=== PATIENT | female | born 1950 | race Caucasian/White ===

== ENCOUNTER → 2017-09-03 | Outpatient (CLI) | payer MEDICARE, BC | END | disposition home or self-care (01) | LOC: PCVCCLINIC 10:23 | DX: I25.10 Atherosclerotic heart disease of native coronary artery without angina pectoris (principal); I65.23 Occlusion and stenosis of bilateral carotid arteries; E78.2 Mixed hyperlipidemia; I10 Essential (primary) hypertension; E11.9 Type 2 diabetes mellitus without complications; Z87.891 Personal history of nicotine dependence; Z79.899 Other long term (current) drug therapy; Z79.82 Long term (current) use of aspirin | CPT/HCPCS: 93005; G0463 ==

== ENCOUNTER → 2018-03-11 | Outpatient (CLI) | payer MEDICARE, BC | END | disposition home or self-care (01) | LOC: PCVCCLINIC 11:11 | PROVIDERS: ATTEND Internal Medicine | DX: I25.10 Atherosclerotic heart disease of native coronary artery without angina pectoris (principal); I10 Essential (primary) hypertension; I65.23 Occlusion and stenosis of bilateral carotid arteries; E78.5 Hyperlipidemia, unspecified; E11.9 Type 2 diabetes mellitus without complications; Z79.4 Long term (current) use of insulin; Z87.891 Personal history of nicotine dependence; Z79.82 Long term (current) use of aspirin; Z79.899 Other long term (current) drug therapy | CPT/HCPCS: 80061; 93005; G0463 ==

== ENCOUNTER → 2018-09-09 | Outpatient (CLI) | payer BC, MEDICARE | END | disposition home or self-care (01) | LOC: PCVCCLINIC 11:51 | PROVIDERS: ATTEND Internal Medicine | DX: I25.10 Atherosclerotic heart disease of native coronary artery without angina pectoris (principal); I10 Essential (primary) hypertension; E78.5 Hyperlipidemia, unspecified; E11.9 Type 2 diabetes mellitus without complications; I65.23 Occlusion and stenosis of bilateral carotid arteries; E78.00 Pure hypercholesterolemia, unspecified; Z87.891 Personal history of nicotine dependence; Z79.82 Long term (current) use of aspirin | CPT/HCPCS: 36415; 80061; 93005; G0463 ==

== ENCOUNTER → 2018-10-03 | Outpatient (CLI) | payer BC, MEDICARE ==
[~2018-10-03] MED LIST: REGADENOSON 0.4 MG/5 ML DISP.SYRIN. IV ONE
--- NOTE | 2018-10-03 09:09 | PCVCIMAG ---
APPROVED REPORT Indications Stenosis Risk Factors Hypertension: Hyperlipidemia Diabetes, Doppler Spectral Velocity Analysis PSV / EDVPSV / EDV ECA (R) 48 / 6 cm/sECA (L) 73 / 16 cm/s dICA (R) 65 / 25 cm/sdICA (L) 92 / 36 cm/s Aster (R) 57 / 19 cm/smICA (L) 83 / 36 cm/s pICA (R) 43 / 16 cm/spICA (L) 51 / 18 cm/s Bulb (R) 51 / 16 cm/sBulb (L) 81 / 23 cm/s dCCA (R) 56 / 16 cm/sdCCA (L) 81 / 22 cm/s mCCA (R) 78 / 22 cm/smCCA (L) 99 / 31 cm/s Vert (R) 40 / 14 cm/sVert (L) 39 / 13 cm/s ICA/CCA 0.83ICA/CCA 0.93 Basic Measurements Blood Pressure: Pulses: Right Left RightLeft Brachial(Sitting) 124/12cbPk092/74mmHgTemporal Real Time B-Mode Imaging Vert. (R)AntegradeVert. (L)Antegrade Findings The right carotid bulb has mild plaque. The right proximal internal carotid artery shows no significant stenosis. The right common carotid artery shows no significant stenosis. The right external carotid artery shows no significant stenosis. The left carotid bulb has mild plaque. The left proximal internal carotid artery shows <40% stenosis. The left common carotid artery shows no significant stenosis. The left external carotid artery shows no significant stenosis. Conclusion 1. Right internal carotid artery plaquing without significant stenosis 2. Left internal carotid artery plaquing (<40% stenosis) 3. Antegrade vertebral flow
--- NOTE | 2018-10-03 15:34 | PCVCIMAG ---
APPROVED REPORT Imaging Protocol: Rest Tc-99m/Stress Tc-99m 1 day Study performed: 10/03/2018 09:10:33 Indication: CAD Patient Location: Out-Patient Stress Nurse: Pily Watt RN, Carmen Krishnamurthy RN DC Tech:Emily Iqbalwin [facility] Ht: 5 ft 0 in Wt: 165 lbs BSA: 1.72 m2 HR: 83 bpm BP: 141/77 mmHg BMI: 32.2 Rhythm: Sinus Rhythm Medical History Medical History: Hyperlipidemia, HTN, CVD, Diabetes, Former Smoker Medications: ASA, Atenolol, Triplex, Vascepa, Lisinopril, Livalo, Janumet, Jardience, Amaryl Allergies: No known drug allergies Cardiac Risk Factors: Age Previous Cardiac Procedures: 2002 PCI Pretest Chest Pain Characteristics: No chest pain Exercise History: Physically active Resting Data Rest SPECT myocardial perfusion imaging was performed in supine position 45 minutes following the intravenous injection of 10.5 mCi of Tc-99m Sestamibi. Time of rest injection: 0900 Administration Route: IV Administration Site: Right Wrist Pharmacologic Stress Pharmacologic stress test was performed by injecting Regadenoson 0.4 mg IV push over 10-15 seconds immediately followed by the intravenous injection of 35.2 mCi of Tc-99m Sestamibi. Time of stress injection: 1000 Date: 10/03/2018 Administration Route: IV Administration Site: Right Wrist Gated Stress SPECT was performed 45 minutes after stress injection. The images were gated to evaluate regional wall motion and calculate left ventricular ejection fraction. Stress Test Details Stress Test: Pharmacologic stress testing performed using 0.4 mg of regadenoson per 5 mL given IV over 10 seconds. Reason for pharmacologic stress test: physical limitation, back issues. HRMax Heart Rate (APMHR): 154 bpm Resting HR: 83 bpmTarget HR (85% APMHR): 130 bpm Max HR Achieved: 137 bpm % of APMHR: 88 Recovery HR: 110 bpm BP Resting BP: 141/77 mmHg Max BP: 129/86 mmHg Recovery BP: 127/85 mmHg ECG Resting ECG: Sinus Rhythm Stress ECG: Sinus Tachycardia ST Change: None Maximum ST Deviation: 0 mm Arrhythmia: None Recovery ECG: Sinus Rhythm Recovery ST Change: Normal Recovery ST Deviation: 0 mm Recovery Arrhythmia: None Clinical Reason for Termination: Completed protocol Stress Symptoms: Dyspnea, Lightheaded Exercise duration: 0 min 55 sec Symptoms resolved with caffeine. Stress ECG Conclusion ECG: Non-ischemic Clinical: Non-ischemic Study Quality Study: Good Study Data Post stress, the left ventricular ejection was 63%.. SSS: 13 SRS: 11 SDS: 4 TID = 1.21. Perfusion Small sized area of mild reversible ischemia involving the apex of the left ventricle consistent with a distal left anterior descending distribution. Wall Motion Normal left ventricular size and function with no regional wall motion abnormalities. Nuclear Conclusion Small sized area of mild reversible ischemia involving the apex of the left ventricle consistent with a distal left anterior descending distribution. Normal left ventricular size and function with no regional wall motion abnormalities. Post stress, the left ventricular ejection was 63%. No prior study available for comparison. Interpreted by: Garry Chowdary MD Electronically Approved: 10/03/2018 14:18:07 <Conclusion> ECG: Non-ischemic Clinical: Non-ischemic
== END | disposition home or self-care (01) ==
LOC: PCVCIMAG 07:48
PROVIDERS: ATTEND Internal Medicine
DX: I65.23 Occlusion and stenosis of bilateral carotid arteries (principal); I25.10 Atherosclerotic heart disease of native coronary artery without angina pectoris; E78.5 Hyperlipidemia, unspecified; I10 Essential (primary) hypertension; Z87.891 Personal history of nicotine dependence
CPT/HCPCS: 78452; 93017; 93880; A9500; J2785